=== PATIENT | male | born 2000 | race Hispanic/Latino ===

== ENCOUNTER 2021-04-07 15:19 | Emergency (ER) | payer SELFPAY ==
--- NOTE | 2021-04-07 19:18 | ER ---
Nurse's Notes [facility] Name: Ernesto Stevens Age: 21 yrs Sex: Male : 2000 Arrival Date: 04/07/2021 Time: 15:21 Bed DIS4 Private MD: Diagnosis: Laceration without foreign body of left little finger without damage to nail;Local infection of the skin and subcutaneous tissue, unspecified Presentation: 04/07 15:38 Chief complaint: Patient states: Accidentally cut L hand 5th digit with a kitchen knife ll1 early this morning at 1 am. No active bleeding. Coronavirus screen: Client denies travel out of the [place] in the last 14 days. At this time, the client does not indicate any symptoms associated with coronavirus-19. Ebola Screen: Patient denies travel to an Ebola-affected area in the 21 days before illness onset. Initial Sepsis Screen: Does the patient meet any 2 criteria? No. Patient's initial sepsis screen is negative. Does the patient have a suspected source of infection? Yes: Skin breakdown/wound. Risk Assessment: Do you want to hurt yourself or someone else? Patient reports no desire to harm self or others. Onset of symptoms was April 07, 2021. 15:38 Method Of Arrival: Ambulatory ll1 15:38 Acuity: TREVA 4 ll1 Historical: - Allergies: 15:39 No Known Allergies; ll1 - PMHx: 15:39 None; ll1 - PSHx: 15:39 R ACL repair; ll1 - Immunization history:: Client reports having NOT received the Covid vaccine. Flu vaccine is not up to date. - Social history:: Smoking status: Reported history of juuling and/or vaping. Patient denies any tobacco usage or history of. Screenin:56 Abuse screen: Denies threats or abuse. Nutritional screening: No deficits noted. bb Tuberculosis screening: No symptoms or risk factors identified. Fall Risk None identified. Assessment: 20:56 General: Appears in no apparent distress. Behavior is calm, cooperative. Pain: bb Complains of pain in left pinky. Neuro: Level of Consciousness is awake, alert, obeys commands, Oriented to person, place, time, situation. Cardiovascular: Capillary refill < 3 seconds Patient's skin is warm and dry. Respiratory: Airway is patent Respiratory effort is even, unlabored, Respiratory pattern is regular. GI: No signs and/or symptoms were reported involving the gastrointestinal system. Derm: Wound noted left pinky finger. Musculoskeletal: Circulation, motion, and sensation intact. Vital Signs: 15:38 BP 142 / 90; Pulse 72; Resp 17; Temp 98.2; Pulse Ox 98% ; Weight 83.91 kg; Height 5 ft. ll1 7 in. (170.18 cm); Pain 6/10; 15:38 Body Mass Index 28.97 (83.91 kg, 170.18 cm) ll1 ED Course: 15:21 Patient arrived in ED. mr 15:39 Triage completed. ll1 15:39 Arm band placed on. ll1 19:14 Savanna Araujo FNP-C is PHCP. kb 19:14 Lex Beck MD is Attending Physician. kb 19:28 Savanna Araujo FNP-C is PHCP. kb 19:28 Lex Beck MD is Attending Physician. kb 20:56 Patient has correct armband on for positive identification. bb 20:56 No provider procedures requiring assistance completed. Patient did not have IV access bb during this emergency room visit. Dressings: Band aid x 1 left pinky finger antibiotic ointment. 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 Lot #: [id number]. } Route: IM; Site: left deltoid; 20:55 Follow up: Response: No adverse reaction bb 20:44 Drug: KeFLEX (cephalexin) 500 mg Route: PO; bb 20:56 Follow up: Response: Medication administered at discharge. bb 20:51 Not Given (Physician Discretion): Lidocaine (1 %) 1 vials 5 ml Infiltration once; to bb bedside Outcome: 19:17 Patient left the ED. iw 20:36 Discharge ordered by . kb 21:02 Discharged to home ambulatory. bb 21:02 Condition: stable 21:02 Discharge instructions given to patient, Instructed on discharge instructions, follow up and referral plans. medication usage, wound care, Demonstrated understanding of instructions, follow-up care, medications, wound care, Prescriptions given X 1. 21:03 Patient left the ED. bb Signatures: Savanna Araujo FNP-C FNP-Nighat Mireles Brenda, RN RN bb Valorie Perez, RN RN iw Gary, Adeline, RN RN ll1
[2021-04-07 19:21] VITALS: BP 142/90; TEMP 98.2; O2SAT 98
[2021-04-07] MEDS ORDERED: LIDOCAINE 1% MPF 5 ML VIAL ONE (20:03)
[2021-04-07] MEDS ORDERED: TETANUS & DIPHTHERIA TOX,ADULT 0.5 ML VIAL ONE (20:06)
--- NOTE | 2021-04-07 20:37 | EDPHYS ---
Physician Documentation [facility] Name: Ernesto Stevens Age: 21 yrs Sex: Male : 2000 Arrival Date: 04/07/2021 Time: 15:21 Bed DIS4 Private MD: ED Physician Lex Beck HPI: 04/07 20:18 This 21 yrs old Male presents to ER via Ambulatory with complaints of Finger kb Laceration. 20:18 The patient has a laceration related to: cooking, from a knife, occurred at home, and kb there are no complicating factors. The injury was accidental. Onset: The symptoms/episode began/occurred yesterday, at 00:00. Associated signs and symptoms: The patient has no apparent associated signs or symptoms. The patient has not experienced similar symptoms in the past. The patient has not recently seen a physician. 20:33 The laceration(s) is(are) located on the palmar aspect of distal phalanx of left little kb finger. Historical: - Allergies: 15:39 No Known Allergies; ll1 - PMHx: 15:39 None; ll1 - PSHx: 15:39 R ACL repair; ll1 - Immunization history:: Client reports having NOT received the Covid vaccine. Flu vaccine is not up to date. - Social history:: Smoking status: Reported history of juuling and/or vaping. Patient denies any tobacco usage or history of. ROS: 20:17 Constitutional: Negative for fever, chills, and weight loss. kb 20:17 Skin: Positive for laceration(s), of the palmar aspect of distal phalanx of left little finger. 20:17 All other systems are negative. Exam: 20:17 Constitutional: This is a well developed, well nourished patient who is awake, alert, kb and in no acute distress. ENT: Moist Mucous membranes Respiratory: Respirations even and unlabored. No increased work of breathing, no retractions or nasal flaring. MS/ Extremity: Pulses equal, no cyanosis. Neurovascular intact. Full, normal range of motion. Neuro: Awake and alert, GCS 15, oriented to person, place, time, and situation. Moves all extremities. Normal gait. Psych: Awake, alert, with orientation to person, place and time. Behavior, mood, and affect are within normal limits. 20:17 Skin: injury, laceration(s), the wound is approximately 2 cm(s), of the palmar aspect of distal phalanx of left little finger, that can be described as clean, no foreign body, jagged, without bleeding, redness and swelling around wound. Vital Signs: 15:38 BP 142 / 90; Pulse 72; Resp 17; Temp 98.2; Pulse Ox 98% ; Weight 83.91 kg; Height 5 ft. ll1 7 in. (170.18 cm); Pain 6/10; 15:38 Body Mass Index 28.97 (83.91 kg, 170.18 cm) ll1 MDM: 19:14 Patient medically screened. kb 19:32 Patient medically screened. kb 20:17 Data reviewed: vital signs, nurses notes. Data interpreted: Pulse oximetry: on room air kb is 98 %. Interpretation: normal. 20:34 Counseling: I had a detailed discussion with the patient and/or guardian regarding: the kb historical points, exam findings, and any diagnostic results supporting the discharge/admit diagnosis, the need for outpatient follow up, a family practitioner, to return to the emergency department if symptoms worsen or persist or if there are any questions or concerns that arise at home. 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 Exp: iw 12/19/2021. Lot #: [id number]. } Route: IM; Site: left deltoid; 20:55 Follow up: Response: No adverse reaction bb 20:44 Drug: KeFLEX (cephalexin) 500 mg Route: PO; bb 20:56 Follow up: Response: Medication administered at discharge. bb 20:51 Not Given (Physician Discretion): Lidocaine (1 %) 1 vials 5 ml Infiltration once; to bb bedside Disposition: 04/08 00:22 Co-signature as Attending Physician, Lex Beck MD. pkl Disposition Summary: 04/07/21 20:36 Discharge Ordered Location: Home kb Condition: Stable kb Diagnosis - Laceration without foreign body of left little finger without damage to nail kb - Local infection of the skin and subcutaneous tissue, unspecified kb Followup: kb - With: Emergency Department - When: As needed - Reason: Worsening of condition Followup: kb - With: Private Physician - When: 2 - 3 days - Reason: Recheck today's complaints, Continuance of care, Re-evaluation by your physician Discharge Instructions: - Discharge Summary Sheet kb - Nonsutured Laceration Care kb - Wound Infection, [id number]-[id number] kb Forms: - Medication Reconciliation Form kb - Thank You Letter kb - Antibiotic Education kb - Prescription Opioid Use kb Prescriptions: - Cephalexin 500 mg Oral Capsule - take 1 capsule by ORAL route every 6 hours for 10 days; 40 capsule; Refills: 0, kb Product Selection Permitted Signatures: Savanna Araujo, IDRIS BORGES-Lex Khan MD MD pkl Ballard, Brenda RN RN Valorie Tierney RN RN iw Lewis, Lynsay RN RN ll1 Corrections: (The following items were deleted from the chart) 04/07 19:28 19:17 before being seen by provider [facility] 19:28 19:17 wait time [facility] 20:34 20:17 Skin: Positive for laceration(s), of the palmar aspect of distal phalanx of right kb index finger, 20:34 20:17 Skin: injury, laceration(s), the wound is approximately 2 cm(s), of the palmar kb aspect of distal phalanx of right index finger, that can be described as clean, no foreign body, jagged, without bleeding, 20:34 20:18 The laceration(s) is(are) located on the palmar aspect of distal phalanx of right kb index finger, kb 20:35 20:17 Skin: injury, laceration(s), the wound is approximately 2 cm(s), of the palmar kb aspect of distal phalanx of left little finger, that can be described as clean, no foreign body, jagged, without bleeding, 20: 19:33 Sterile Gloves ordered. [facility] 20:55 19:33 Sutures, Prolene ordered. [facility] 20:55 19:33 Setup Suture Tray ordered. [facility]
[2021-04-07] MEDS ORDERED: CEPHALEXIN 250 MG CAP ONE (21:08)
== END 2021-04-07 21:03 | disposition home or self-care (01) ==
LOC: ER 15:19
DX: S61.217A Laceration without foreign body of left little finger without damage to nail, initial encounter (principal); L08.9 Local infection of the skin and subcutaneous tissue, unspecified; W26.0XXA Contact with knife, initial encounter; Y93.G3 Activity, cooking and baking; Y92.009 Unspecified place in unspecified non-institutional (private) residence as the place of occurrence of the external cause; Z23 Encounter for immunization
CPT/HCPCS: 90471; 90714; 99283